=== PATIENT | male | born 1955 | race Caucasian/White ===

== ENCOUNTER 2022-04-05 11:56 | Emergency (ER) | payer MEDICARE, OTHER ==
[~2022-04-05] VITALS: Ht 172.7 cm; Wt 73.2 kg
[2022-04-05] MEDS ORDERED: normal saline 1000ML IV soln IV ONE (12:25)
[2022-04-05 13:13] LABS: HEMOGLOBIN 11.3 g/dl (14.0-17.9); MEAN CORPUSCULAR HEMOGLOBIN 33.6 PG (27.0-31.0); MEAN CORPUSCULAR HGB CONC 34.2 g/dL (33.0-36.5); MEAN CORPUSCULAR VOLUME 98.3 FL (78-98); MEAN PLATELET VOLUME 9.4 FL (7.4-10.4); PLATELET COUNT 194 X10'3 (140-440); RED BLOOD COUNT 3.36 X10'6 (4.70-6.10); RED CELL DISTRIBUTION WIDTH 17.5 % (11.5-14.5); WHITE BLOOD COUNT 8.3 X10'3 (4.5-11.0)
[2022-04-05 13:22] LABS: ALANINE AMINOTRANSFERASE 130 U/L (12-78); ALBUMIN/GLOBULIN RATIO 0.4 (1.1-1.5); ALKALINE PHOSPHATASE 348 IU/L (46-116); ANION GAP 12 (8-16); ASPARTATE AMINO TRANSFERASE 70 U/L (10-37); BILIRUBIN,DIRECT 4.8 MG/DL (0-0.3); BILIRUBIN,TOTAL 5.1 MG/DL (0.1-1.0); BLOOD UREA NITROGEN 66 MG/DL (7-18); BUN/CREATININE RATIO 19.5 (5.4-32.0); CALCIUM 9.3 MG/DL (8.5-10.1); CHLORIDE 98 MMOL/L (99-107); CREATININE 3.39 MG/DL (0.60-1.10); GLUCOSE 123 MG/DL (70-104); LIPASE 402 U/L (73-393); MAGNESIUM 1.8 MG/DL (1.5-2.4); SODIUM 129 MMOL/L (135-145); eGFR 18 ML/MIN
[2022-04-05 13:26] LABS: LACTIC SEPSIS 2.3 MMOL/L (0.4-2.0)
[2022-04-05 13:38] LABS: ANISOCYTOSIS 1+; LARGE PLATELETS FEW; PLATELET ESTIMATE NORMAL; TOTAL CELLS COUNTED 100
[2022-04-05 13:54] VITALS: BP 103/70
--- NOTE | 2022-04-05 15:03 | NUR ---
PLEASE CONTACT WITH ANY INFORMATION: CHRISTOPHER VILLANUEVA ; RELATIONSHIP DAUGHTER.
[2022-04-05] MEDS ORDERED: MEGE40TA5 PO (16:03)
[2022-04-05] MEDS ORDERED: ONDA4TAB12 PO (16:03)
== END 2022-04-05 17:10 | disposition home or self-care (01) ==
LOC: ER 11:58
DX: R53.1 Weakness (principal); R11.0 Nausea; E86.0 Dehydration; E11.22 Type 2 diabetes mellitus with diabetic chronic kidney disease; N18.30 Chronic kidney disease, stage 3 unspecified; Z72.89 Other problems related to lifestyle; Z79.899 Other long term (current) drug therapy
CPT/HCPCS: 36415; 71045; 76700; 80053; 82140; 82248; 82948; 83605; 83690; 83735; 84145; 85007; 85025; 93005; 96360; 96361; 99285; J7030